=== PATIENT | female | born 1960 | race African-American/Black ===

== ENCOUNTER 2020-12-20 06:56 | Day surgery (SDC) | payer MEDICARE, MEDICAID ==
[~2020-12-20] VITALS: Ht 165.1 cm; Wt 81.6 kg
[~2020-12-20 06:56] MED LIST: ALBU18HF2 IH; ASPI-1497 PO; CARV6.2548 PO; FURO-151 PO; LEVO500T89 MT; LOSA50TA41 PO; OMEP40CA20 PO; POTA20TA82 MT; SPIR25TA6 PO
[2020-12-20] MEDS ORDERED: ASPIRIN/SOD BICARB/CITRIC ACID 324MG TAB EFF ONE (07:41)
[2020-12-20] MEDS ORDERED: MIDAZOLAM HCL 2 MG/2 ML VIAL ONE (08:14)
[2020-12-20] MEDS ORDERED: FENTANYL CITRATE/PF 50MCG/ML 2ML VIAL ONE (08:14)
[2020-12-20] MEDS ORDERED: LIDOCAINE HCL 1% 20ML VIAL (Pyxis) INJ ONE (08:15)
[2020-12-20] MEDS ORDERED: IODIXANOL 320MG/ML 100 ML BOTTLE IV ONE (08:15)
[2020-12-20] MEDS ORDERED: ATROPINE SULFATE 1MG/10ML SYR IV PRN (09:15)
[2020-12-20] MEDS ORDERED: ONDANSETRON HCL 4MG/2ML INJ IV PRN (09:15)
[2020-12-20] MEDS ORDERED: ACETAMINOPHEN 325MG TABLET PO PRN (09:15)
[2020-12-20] MEDS ORDERED: MORPHINE SULFATE 2 MG/ML CPJ (NOT FOR IM USE) IV PRN ×2 (09:15)
[2020-12-20] MEDS ORDERED: NITROGLYCERIN 50MCG/ML 10ML VIAL (CATH LAB) IV ONE (10:38)
[2020-12-20] MEDS ORDERED: HEPARIN SODIUM 1,000 UNIT/1ML VIAL IV ONE (10:38)
[2020-12-20] MEDS ORDERED: NICARDIPINE 100MCG/ML 10ML VIAL (CATH LAB) IV ONE (10:38)
[2020-12-20] MEDS ORDERED: FENTANYL CITRATE/PF 50MCG/ML 5ML VIAL ONE (11:26)
[2020-12-20] MEDS ORDERED: MIDAZOLAM HCL 5 MG/5 ML VIAL ONE (11:26)
== END 2020-12-20 16:00 | disposition home or self-care (01) ==
LOC: CCL 06:56
PROVIDERS: ATTEND Specialist
DX: I25.10 Atherosclerotic heart disease of native coronary artery without angina pectoris (principal); I10 Essential (primary) hypertension; E78.5 Hyperlipidemia, unspecified; Z79.82 Long term (current) use of aspirin; Z79.899 Other long term (current) drug therapy; Z98.890 Other specified postprocedural states; Z82.49 Family history of ischemic heart disease and other diseases of the circulatory system; Z83.3 Family history of diabetes mellitus
CPT/HCPCS: 93458; C1760; C1769; C1893; J1644; J2250; J2405; J3010; J3490; Q9967

== ENCOUNTER 2021-10-13 21:03 | Inpatient (IN) | payer OTHER, MEDICARE, MEDICAID ==
[~2021-10-13] VITALS: Ht 165.1 cm; Wt 80.3 kg
[~2021-10-13 21:03] MED LIST changes: -LEVO500T89 MT; +LEVO500T90 MT; +POTA-205 MT; -POTA20TA82 MT
[2021-10-13] MEDS ORDERED: HYDROCODONE/ACETAMINOPHEN 10/325MG TABLET PO NR (22:00)
[2021-10-13] MEDS ORDERED: HYDROCODONE/ACETAMINOPHEN 10/325MG TABLET PO ONE (22:00)
[2021-10-13 23:44] LABS: BASOPHILS % 0.8 % (0.0-2.0); EOSINOPHILS % 1.6 % (0.0-5.0); HEMATOCRIT. 33.8 % (36.0-48.0); HEMOGLOBIN. 10.7 g/dL (12.0-16.0); LYMPHOCYTES % 32.2 % (20.0-50.0); MEAN CORPUSCULAR HEMOGLOBIN 28.9 pg (28.0-32.0); MEAN CORPUSCULAR VOLUME 91.3 fL (81.0-99.0); MEAN PLATELET VOLUME 9.6 fl (7.4-10.4); MONOCYTES % 8.3 % (2.0-8.0); NEUTROPHILS % 57.1 % (40.0-76.0); PLATELET 193 x1000/uL (130-400); RED BLOOD CELL COUNT 3.71 mill/uL (4.2-5.4); RED CELL DISTRIBUTION WIDTH 14.9 % (11.6-14.6)
[2021-10-13 23:45] LABS: CHLORIDE 109 mEq/L (98-107)
[2021-10-13 23:48] LABS: INR 1.1; PROTHROMBIN TIME 11.7 sec (9.6-11.0)
[2021-10-14 00:30] LABS: CLARITY URINE CLEAR (CLEAR); COLOR URINE DARK YELLOW (YELLOW); KETONES URINE TRACE (NEGATIVE); LEUKOCYTE ESTERASE URINE TRACE (NEGATIVE); NITRITE URINE NEGATIVE (NEGATIVE); OCCULT BLOOD URINE 2+ (NEGATIVE); PH URINE 5.5 (4.5-8.0); PROTEIN URINE 3+ (NEGATIVE)
[2021-10-14] MEDS ORDERED: ONDANSETRON HCL 4MG/2ML INJ IV ONE (00:45)
[2021-10-14] MEDS ORDERED: MORPHINE SULFATE 4 MG/ML CPJ (NOT FOR IM USE) IV ONE (00:45)
[2021-10-14] MEDS ORDERED: ONDANSETRON HCL 4MG/2ML INJ IV PRN (08:00)
[2021-10-14] MEDS ORDERED: ACETAMINOPHEN 325MG TABLET PO PRN (08:00)
[2021-10-14] MEDS ORDERED: DOCUSATE SODIUM 100MG CAPSULE PO PRN (08:00)
[2021-10-14] MEDS ORDERED: IPRATROPIUM/ALBUTEROL 0.5-3(2.5)MG/3ML NEB NEB PRN (08:00)
[2021-10-14] MEDS ORDERED: NA PHOS,M-B/NA PHOS,DI-BA ENEMA 118ML PR PRN (08:00)
[2021-10-14] MEDS ORDERED: MAGNESIUM/ALUMINUM HYDROXIDE/SIMETHICONE 30ML UDC PO PRN (08:00)
[2021-10-14] MEDS ORDERED: CLONIDINE 0.1MG TABLET PO PRN (08:00)
[2021-10-14] MEDS ORDERED: DIPHENHYDRAMINE 50MG/ML VIAL IV PRN (08:00)
[2021-10-14] MEDS ORDERED: GUAIFENESIN 200MG/10ML SUGAR FREE UDC PO PRN (08:00)
[2021-10-14] MEDS ORDERED: NALOXONE HCL 0.4MG/ML VIAL IV PRN (08:30)
[2021-10-14] MEDS ORDERED: ASPIRIN 81MG EC TABLET PO SCH (09:00)
[2021-10-14] MEDS ORDERED: ENOXAPARIN 40MG/0.4ML SYR SUBCUT SCH (09:00)
[2021-10-14] MEDS: MORPHINE SULFATE 2 MG/ML CPJ (NOT FOR IM USE) IV PRN ×2 (09:09→21:33)
[2021-10-14] MEDS ORDERED: SACU1TAB PO (10:58)
[2021-10-14 11:13] VITALS: BP 120/44
[2021-10-14 11:40] VITALS: BP 122/52
[2021-10-14 15:47] VITALS: BP 115/61
[2021-10-14] MEDS: HYDROCODONE/ACETAMINOPHEN 5/325MG TABLET PO PRN (16:09)
[2021-10-14] MEDS: APIXABAN 5 MG TABLET PO SCH (16:10)
[2021-10-14 20:00] VITALS: BP 100/52
[2021-10-15] VITALS: BP 151/55
[2021-10-15 07:54] LABS: BASOPHILS % 0.7 % (0.0-2.0); EOSINOPHILS % 2.3 % (0.0-5.0); HEMATOCRIT. 29.1 % (36.0-48.0); HEMOGLOBIN. 9.6 g/dL (12.0-16.0); LYMPHOCYTES % 45.2 % (20.0-50.0); MEAN CORPUSCULAR HEMOGLOBIN 29.8 pg (28.0-32.0); MEAN CORPUSCULAR VOLUME 90.3 fL (81.0-99.0); MEAN PLATELET VOLUME 9.4 fl (7.4-10.4); MONOCYTES % 13.6 % (2.0-8.0); NEUTROPHILS % 38.2 % (40.0-76.0); PLATELET 169 x1000/uL (130-400); RED BLOOD CELL COUNT 3.22 mill/uL (4.2-5.4); RED CELL DISTRIBUTION WIDTH 14.9 % (11.6-14.6)
[2021-10-15 08:00] VITALS: BP 106/59
[2021-10-15 08:06] LABS: CHLORIDE 107 mEq/L (98-107)
[2021-10-15] MEDS: APIXABAN 5 MG TABLET PO SCH ×2 (08:35→16:41)
[2021-10-15] MEDS: MORPHINE SULFATE 2 MG/ML CPJ (NOT FOR IM USE) IV PRN ×2 (08:36→16:42)
[2021-10-15] MEDS ORDERED: ASPIRIN 81MG TABLET PO SCH (09:00)
[2021-10-15 12:00] VITALS: BP 106/58
[2021-10-15 15:57] VITALS: BP 100/52
[2021-10-15 20:30] VITALS: BP 101/49
[2021-10-15] MEDS: CARVEDILOL 3.125 MG TABLET PO SCH (20:52)
[2021-10-15] MEDS: HYDROCODONE/ACETAMINOPHEN 5/325MG TABLET PO PRN (21:11)
[2021-10-15] MEDS: FUROSEMIDE 40MG TABLET PO SCH (21:12)
[2021-10-16] VITALS: BP 100/52
[2021-10-16 04:00] VITALS: BP 113/68
[2021-10-16] MEDS: HYDROCODONE/ACETAMINOPHEN 5/325MG TABLET PO PRN ×2 (04:47→09:38)
[2021-10-16 08:00] VITALS: BP 95/66
[2021-10-16] MEDS ORDERED: LOSARTAN POTASSIUM 25 MG TABLET PO SCH (09:00)
[2021-10-16] MEDS: CARVEDILOL 3.125 MG TABLET PO SCH (09:00)
[2021-10-16] MEDS: APIXABAN 5 MG TABLET PO SCH (09:37)
[2021-10-16] MEDS: FUROSEMIDE 40MG TABLET PO SCH (09:37)
[2021-10-16 12:00] VITALS: BP 103/64
[2021-10-16] MEDS: MORPHINE SULFATE 2 MG/ML CPJ (NOT FOR IM USE) IV PRN (12:03)
[2021-10-16 12:35] VITALS: BP 103/64
== END 2021-10-16 14:36 | disposition home or self-care (01) | DRG 308 ==
LOC: ER 21:03 → MICUSO 23:11 → 8WST 10-14 11:21
PROVIDERS: ADMIT Internal Medicine; ATTEND Internal Medicine
DX: I48.91 Unspecified atrial fibrillation (principal); I50.23 Acute on chronic systolic (congestive) heart failure; I11.0 Hypertensive heart disease with heart failure; I25.10 Atherosclerotic heart disease of native coronary artery without angina pectoris; I44.7 Left bundle-branch block, unspecified; G89.29 Other chronic pain; M54.9 Dorsalgia, unspecified; I42.9 Cardiomyopathy, unspecified; I08.1 Rheumatic disorders of both mitral and tricuspid valves; I27.20 Pulmonary hypertension, unspecified; J45.909 Unspecified asthma, uncomplicated; Z79.899 Other long term (current) drug therapy; Z95.810 Presence of automatic (implantable) cardiac defibrillator
CPT/HCPCS: 36415; 71045; 80053; 81003; 83880; 84484; 85025; 86850; 86900; 93005; 93306; 99285; J1650; J2270; J2405

== ENCOUNTER 2021-12-06 13:39 | Emergency (ER) | payer MEDICAID, MEDICARE, OTHER ==
[~2021-12-06] VITALS: Ht 165.1 cm; Wt 77.0 kg
[~2021-12-06 13:39] MED LIST changes: +SACU1TAB PO
[2021-12-06 13:53] VITALS: BP 123/65
[2021-12-06 16:03] LABS: BASOPHILS % 0.9 % (0.0-2.0); EOSINOPHILS % 3.8 % (0.0-5.0); HEMOGLOBIN. 10.2 g/dL (12.0-16.0); LYMPHOCYTES % 51.2 % (20.0-50.0); MEAN CORPUSCULAR HEMOGLOBIN 29.5 pg (28.0-32.0); MEAN CORPUSCULAR VOLUME 92.6 fL (81.0-99.0); MEAN PLATELET VOLUME 8.6 fl (7.4-10.4); MONOCYTES % 12.4 % (2.0-8.0); NEUTROPHILS % 31.7 % (40.0-76.0); PLATELET 167 x1000/uL (130-400); RED BLOOD CELL COUNT 3.45 mill/uL (4.2-5.4); RED CELL DISTRIBUTION WIDTH 15.9 % (11.6-14.6)
[2021-12-06 16:05] LABS: CHLORIDE 107 mEq/L (98-107)
== END 2021-12-06 19:22 | disposition left against medical advice (07) ==
LOC: ER 13:39
DX: I11.0 Hypertensive heart disease with heart failure (principal); I50.9 Heart failure, unspecified; R10.9 Unspecified abdominal pain; Z91.19 Patient's noncompliance with other medical treatment and regimen; J45.909 Unspecified asthma, uncomplicated; Z95.0 Presence of cardiac pacemaker; Z79.82 Long term (current) use of aspirin
CPT/HCPCS: 36415; 71045; 80053; 83880; 84484; 85025; 93005; 99285